=== PATIENT | male | born 1995 | race Asian ===

== ENCOUNTER 2020-11-21 09:42 | Emergency (ER) | payer SELFPAY ==
[~2020-11-21] VITALS: Ht 175.3 cm; Wt 64.0 kg
[2020-11-21 10:03] VITALS: BP 130/90
== END 2020-11-21 10:12 | disposition home or self-care (01) ==
LOC: EDBD 09:42 → ER 09:42
DX: Z00.00 Encounter for general adult medical examination without abnormal findings (principal); F17.210 Nicotine dependence, cigarettes, uncomplicated
CPT/HCPCS: 99283